=== PATIENT | female | born 1995 | race Caucasian/White ===

== ENCOUNTER → 2017-01-08 | Outpatient (CLI) | payer OTHER ==
[~2017-01-08] MED LIST: NO MEDICATIONS
--- NOTE | ~2017-01-08 | CR63 ---
[facility] A Service of [facility] RADIOLOGY TEXT RESULTS PATIENT: NIDA SCHRADER LOCATION: [facility] : [birth year] UNIT #: [id number] AGE: [address]: Feliberto Jane III, MD SEX: F ORDER DR: [id number] [facility] [address] [place], [place] [address] [id number] O MR#: [id number] Acc #: [id number] NAME: NIDA SCHRADER : 1995 SEX: F STUDY DATE/TIME: 01/08/2017 9:06 UNIT: [facility] ROOM: STUDY DESCRIPTION: CR Chest 2 View Attending Physician: Feliberto Jane III, M.D. Referring Physician: Feliberto Jane III, M.D. Ordering Physician: Feliberto Jane III, M.D. Primary Care Physician: Emi Lopes M.D. MEDICAL IMAGING REPORT This report is preliminary unless electronic signature is present EXAM Chest, 01/08/2017 HISTORY 22-year-old woman preop clearance for laparoscopic adjustable gastric band placement and possible paraesophageal hernia repair. Social smoker. COMPARISON None FINDINGS Two-view chest demonstrates normal cardiac size and configuration. Hilar structures and mediastinal contours are preserved. Bilateral lungs are expanded and clear and costophrenic angles clear. Large body habitus noted. IMPRESSION Negative chest. Dictated by... Mick Martinez M.D. THIS IS AN ELECTRONICALLY VERIFIED REPORT Mick Martinez M.D. at 01/08/2017 1:11 PM Koki TD: 01/08/2017 12:24 JOB #: [id number] MEDICAL IMAGING REPORT Page 1 of 1 COPY
--- NOTE | ~2017-01-08 | EKG ---
PATIENT: NIDA SCHRADER UNIT #: [id number] Ventricular Rate: 73 BPM Atrial Rate: 73 BPM P-R Interval: 148 ms QRS Duration: 100 ms Q-T Interval: 386 ms QTC Calculation(Bezet): 425 ms P [place]: 12 degrees Calculated R [place]: 62 degrees Calculated T [place]: 24 degrees Diagnosis Line: Normal sinus rhythm with sinus arrhythmia Diagnosis Line: Normal ECG Diagnosis Line: No previous ECGs available Diagnosis Line: Confirmed by JO LUCIO MD ([id number]) on Diagnosis Line: 01/09/2017 2:53:59 PM INTERPRETING MD: DEVANTE
--- NOTE | ~2017-01-08 | CR97 ---
[facility] A Service of [facility] RADIOLOGY TEXT RESULTS PATIENT: NIDA SCHRADER LOCATION: [facility] : [birth year] UNIT #: [id number] AGE: [address]: Feliberto Jane III, MD SEX: F ORDER DR: [id number] [address] [address] [id number] O MR#: [id number] Acc #: [id number] NAME: NIDA SCHRADER : 1995 SEX: F STUDY DATE/TIME: 01/08/2017 9:28 UNIT: [facility] ROOM: STUDY DESCRIPTION: CR Esophagram Attending Physician: Feliberto Jane III, M.D. Referring Physician: Feliberto Jane III, M.D. Ordering Physician: Feliberto Jane III, M.D. Primary Care Physician: Emi Lopes M.D. MEDICAL IMAGING REPORT This report is preliminary unless electronic signature is present EXAM Single contrast barium esophagram. INDICTION This is a preoperative examination prior to laparoscopic gastric banding surgery. TECHNIQUE The patient was administered thin barium and multiple fluoroscopic images were obtained. FINDINGS Thoracic esophagus is of normal caliber. There is no evidence of stricture or mass lesion, esophageal motility appears within normal limits. No hiatal hernia was seen. IMPRESSION Normal single contrast barium esophagram. Total fluoroscopy time was 0.4 minutes. A total of 8 fluoroscopic images were obtained. Dictated by... Ranjana Arias M.D. THIS IS AN ELECTRONICALLY VERIFIED REPORT Ranjana Arias M.D. at 01/11/2017 3:53 PM AFF/issac TD: 01/11/2017 08:22 JOB #: [id number] MEDICAL IMAGING REPORT [facility] A Service [facility] RADIOLOGY TEXT RESULTS PATIENT: NIDA SCHRADER LOCATION: [facility] : [birth year] UNIT #: [id number] AGE: [address]: Feliberto Jane III, MD SEX: F ORDER DR: Page 1 of 1 COPY
[2017-01-08 09:03] LABS: HEMATOCRIT 43.5 % (35.0-45.0); HEMOGLOBIN 14.3 gm/dL (12.0-16.0); MEAN CELL VOLUME 93.7 FL (83-96); MEAN CORPUSCULAR HEMOGLOBIN 30.9 PG (28-34); MEAN CORPUSCULAR HGB CONC 32.9 g/dL (30-36); MEAN PLATELET VOLUME 9.1 FL (6.5-11.5); RED BLOOD COUNT 4.64 X10e (3.90-5.30); RED CELL DISTRIBUTION WIDTH 13.6 % (11.0-15.5); WHITE BLOOD COUNT 10.6 X10e3 (4.0-10.5)
[2017-01-08 09:45] LABS: ALBUMIN SERUM 4.1 g/dL (3.5-5.0); CALCIUM SERUM 8.9 mg/dL (8.4-10.2); CREATININE SERUM 0.5 mg/dL (0.6-1.4); GLOM FILT RATE Estimated 136.4 mL/min (>60); POTASSIUM 4.2 mmol/L (3.5-5.1); PROTEIN TOTAL SERUM 6.9 g/dL (6.0-8.3)
== END | disposition home or self-care (01) ==
LOC: CRAD 07:55 → CAMB 09:00
PROVIDERS: Surgery
DX: Z01.818 Encounter for other preprocedural examination (principal); K44.9 Diaphragmatic hernia without obstruction or gangrene; I49.9 Cardiac arrhythmia, unspecified
CPT/HCPCS: 36415; 71020; 74220; 80053; 80061; 84443; 84703; 85027; 93005

== ENCOUNTER → 2017-01-20 | Day surgery (SDC) | payer SELFPAY ==
--- NOTE | ~2017-01-20 | OR ---
Unit #: [id number] #: [id number] Patient: NIDA SCHRADER [id number] [facility] [address]. [place], [place] [address] [id number] O MR#: [id number] NAME: NIDA SCHRADER ROOM: Date of Procedure: 01/20/2017 Admission Date: 01/20/2017 Surgeon: Feliberto Jane III, M.D. : 1995 Attending Physician: Feliberto Jane III, M.D. Primary Care Physician: Emi Lopes M.D. OPERATIVE REPORT PREOPERATIVE DIAGNOSIS Chronic severe obesity. POSTOPERATIVE DIAGNOSIS Chronic severe obesity. SECONDARY DIAGNOSES Anterior paraesophageal hernia. PROCEDURES PERFORMED Laparoscopic adjustable gastric banding (AP standard with low-profile port) and laparoscopic paraesophageal hernia repair. BATTERY INSTALLER Valentin Pollack M.D. SPECIMENS None. COMPLICATIONS None apparent. ESTIMATED BLOOD LOSS Minimal. INDICATIONS FOR PROCEDURE This is a 22-year-old lady, who has chronic severe obesity with a BMI of 34. She has been through the bariatric program at [facility] and understands the risks and benefits of the procedure. DESCRIPTION OF PROCEDURE After consent was obtained, including the risks and benefits of slippage, erosion, port dysfunction, and possible failure of weight loss due to noncompliance, the patient was taken to the operating room and placed in the supine position. General anesthetic was administered and the abdomen was prepped and draped in standard surgical fashion. I began by making a 2 cm incision just above and to the left of the umbilicus. I used a Visiport to enter the peritoneal cavity without any difficulty. C02 pneumoperitoneum was then established. Next, I placed a 5 mm port in the right upper quadrant, a 5 mm Jose Angel liver retractor in the subxiphoid region to provide exposure of the gastroesophageal Unit #: [id number] #: [id number] Patient: NIDA SCHRADER junction. Next, a 10 mm port was placed in the left upper quadrant and a 5 mm port was placed in the left lateral subcostal region. I began by performing an examination of the GE junction to evaluate for a hiatal hernia. We then scored the peritoneal attachments overlying the angle of His. I then opened up the clear space in the gastrohepatic ligament, and then using 2 blunt graspers, I identified the small fat pad crossing over the right crura. I swept the fat anterior to the crura off the crura and using the pars flaccida, I created a retrogastric tunnel where the blunt grasper exited at the angle of His. Once I had made this tunnel safely, I then inserted an Allergan AP band into the abdominal cavity. This adjustable gastric band was then place around the upper part of the stomach and fastened and buckled anteriorly. We then tacked the lateral fundus over the band to the proximal pouch with 2 interrupted 0 Ethibond sutures. I then used a third stitch to imbricate the excess anterior stomach by going from the lesser curvature up towards where the last stitch was placed. We then had excellent hemostasis. I removed the Jose Angel liver retractor. We then removed the port tubing through the initial port incision. The rest of the ports were removed, and the pneumoperitoneum was released. I then left a small tail on the tubing. We then attached the port to the excess band tubing. We placed a piece of Prolene mesh along the back side of the port and used a Prolene stitch to anchor this mesh in place. We then trimmed the excess mesh so that just a small footprint of mesh was in place behind the port. I then inserted the tubing back into the abdominal cavity, and we placed the port into a small pocket that was made just inferior to where our initial port incision was made. The mesh was in direct contact with the fascia, and this will scar in place to hold the port in place. We then injected all the port sites with 0.25% plain Marcaine, and I reapproximated the skin edges with interrupted 4-0 Vicryl subcuticular sutures. Steri-strips were then applied. The patient tolerated the procedure without any problems and returned to the recovery room in stable condition. ADDENDUM After exposure of the GE junction, the patient was noted to have a dvxvp-[id number] size anterior paraesophageal hernia. I scored the phrenoesophageal ligament, reduced the hernia defect and after identifying both the right and left crura, I reapproximated the defect with an interrupted 0 Ethibond titwuk-ia-utrgp suture. I then proceeded with the case as listed above. Dictated by... Feliberto Jane III, M.D. VCL/yeny TD: 01/21/2017 07:43 JOB #: [id number] Unit #: [id number] #: [id number] Patient: NIDA SCHRADER OPERATIVE REPORT Page 1 of 1 X Feliberto Jane III, MD PROCEDURE OPERATIVE NOTE
--- NOTE | ~2017-01-20 | CR7 ---
[facility] A Service of [facility] RADIOLOGY TEXT RESULTS PATIENT: NIDA SCHRADER LOCATION: [facility] : [birth year] UNIT #: [id number] AGE: [address]: Feliberto Jane III, MD SEX: F ORDER DR: [id number] [place] [id number] [facility]. [place], [place] [address] [id number] O MR#: [id number] Acc #: [id number] NAME: NIDA SCHRADER : 1995 SEX: F STUDY DATE/TIME: 01/20/2017 09:27 UNIT: [facility] ROOM: STUDY DESCRIPTION: CR Abdomen Single AP View Attending Physician: Feliberto Jane III, M.D. Ordering Physician: Feliberto Jane III, M.D. Primary Care Physician: Emi Lopes M.D. MEDICAL IMAGING REPORT This report is preliminary unless electronic signature is present EXAM Abdomen single view, 01/20/2017 09:27 hours HISTORY Postop Lap-Band placement today, assess band placement. COMPARISON Esophagram, 01/08/2017 FINDINGS Single supine view of the abdomen demonstrates placement of a Lap-Band overlying the left T11 costovertebral junction oriented at 47 degrees from vertical. Radiopaque tubing courses inferiorly to a port projecting over the medial aspect of the left iliac crest. Bowel gas pattern is unremarkable. IMPRESSION Postop Lap-Band placement with band oriented at 47 degrees from vertical overlying the left T11 costovertebral junction. Radiopaque tubing courses inferiorly to a port overlying the left medial iliac crest. Bowel gas pattern is unremarkable. Dictated by... Sofy Noe M.D. THIS IS AN ELECTRONICALLY VERIFIED REPORT Sofy Noe M.D. at 01/20/2017 2:33 PM Eleni TD: 01/20/2017 13:59 JOB #: [id number] MEDICAL IMAGING REPORT [facility] A Service [facility] RADIOLOGY TEXT RESULTS PATIENT: NIDA SCHRADER LOCATION: [facility] #: [id number] : [birth year] UNIT #: [id number] AGE: [address]: Feliberto Jane III, MD SEX: F ORDER DR: Page 1 of 1 COPY
== END | disposition home or self-care (01) ==
LOC: CSUR 06:35
DX: E66.01 Morbid (severe) obesity due to excess calories (principal); K44.9 Diaphragmatic hernia without obstruction or gangrene; Z68.34 Body mass index [BMI] 34.0-34.9, adult; Z72.4 Inappropriate diet and eating habits; Z87.442 Personal history of urinary calculi; Z87.891 Personal history of nicotine dependence; Z98.818 Other dental procedure status
CPT/HCPCS: 74000; 84703; C1781; J0330; J0690; J1650; J1885; J2250; J2405; J3010